=== PATIENT | female | born 1945 | race Caucasian/White ===

== ENCOUNTER → 2016-07-17 | Outpatient (CLI) | payer MEDICARE ==
[~2016-07-17] MED LIST: CITA20TA5 PO; GABA300C10 PO; TRAM50TA2 PO; carvedilol PO
== END | disposition home or self-care (01) ==
LOC: CFH 12:57
PROVIDERS: ATTEND Internal Medicine
DX: R10.2 Pelvic and perineal pain (principal); Z90.710 Acquired absence of both cervix and uterus
CPT/HCPCS: 76830

== ENCOUNTER → 2018-08-08 | Outpatient (CLI) | payer MEDICARE ==
[~2018-08-08] MED LIST changes: -CITA20TA5 PO; +CITA20TA6 PO
== END | disposition home or self-care (01) ==
LOC: CFH 15:36
PROVIDERS: ATTEND Internal Medicine
DX: I82.412 Acute embolism and thrombosis of left femoral vein (principal); I82.432 Acute embolism and thrombosis of left popliteal vein

== ENCOUNTER 2018-10-13 14:41 | Outpatient (CLI) | payer MEDICARE | END 2018-10-13 23:59 | disposition home or self-care (01) | LOC: CFH 14:41 | PROVIDERS: ATTEND Internal Medicine | DX: I82.532 Chronic embolism and thrombosis of left popliteal vein (principal); I82.512 Chronic embolism and thrombosis of left femoral vein; I83.892 Varicose veins of left lower extremity with other complications ==

== ENCOUNTER → 2019-08-03 | Outpatient (CLI) | payer MEDICARE | END | disposition home or self-care (01) | LOC: CFH 08:33 | PROVIDERS: ATTEND Internal Medicine Cardiovascular Disease | DX: I08.3 Combined rheumatic disorders of mitral, aortic and tricuspid valves (principal); I10 Essential (primary) hypertension; E78.5 Hyperlipidemia, unspecified; I82.409 Acute embolism and thrombosis of unspecified deep veins of unspecified lower extremity | CPT/HCPCS: 93306; 93356 ==

== ENCOUNTER → 2019-08-21 | Outpatient (CLI) | payer MEDICARE | END | disposition home or self-care (01) | LOC: CFH 11:49 | PROVIDERS: ATTEND Internal Medicine Cardiovascular Disease | DX: R06.02 Shortness of breath (principal); I10 Essential (primary) hypertension | CPT/HCPCS: 78452; 93017; A9502 ==

== ENCOUNTER 2019-10-08 12:26 | Outpatient (CLI) | payer MEDICARE | END 2019-10-08 23:59 | disposition home or self-care (01) | LOC: CVU 12:26 | PROVIDERS: ATTEND Internal Medicine Cardiovascular Disease | DX: I74.3 Embolism and thrombosis of arteries of the lower extremities (principal); I74.8 Embolism and thrombosis of other arteries; I82.402 Acute embolism and thrombosis of unspecified deep veins of left lower extremity | CPT/HCPCS: 93922; 93970 ==

== ENCOUNTER 2019-12-15 11:06 | Outpatient (CLI) | payer MEDICARE | END 2019-12-15 23:59 | disposition home or self-care (01) | LOC: CFH 11:06 | PROVIDERS: ATTEND Internal Medicine | DX: I82.452 Acute embolism and thrombosis of left peroneal vein (principal) ==